=== PATIENT | female | born 2000 | race Caucasian/White ===

== ENCOUNTER 2023-04-28 14:00 | Outpatient (REF) | payer OTHER, SELFPAY ==
[2023-05-01 16:58] LABS: VITAMIN D (1,25 OH) D3 20 pg/mL; Vit D (1,25-Dihydroxy) Total 41 pg/mL (18-72); Vitamin D (1,25 OH) D2 21 pg/mL
== END 2023-04-28 14:01 | disposition home or self-care (01) ==
LOC: HO.CHCLDS 14:00
PROVIDERS: Visit Provider Pediatrics
DX: E55.9 Vitamin D deficiency, unspecified (principal)
CPT/HCPCS: 36415; 82652

== ENCOUNTER 2023-05-05 10:59 | Outpatient (REF) | payer OTHER, SELFPAY ==
[2023-05-05 16:39] LABS: CT PCR NOT DETECTED (Not Detect.); NG PCR NOT DETECTED (Not Detect.)
[2023-05-07 11:14] LABS: RPR Rapid Plasma Reagin NON-REACTIVE (NON-REACTIVE)
[2023-05-07 22:53] LABS: TS Negative Control Passed; TS Panel A 0; TS Panel B 0; TS Positive Control Passed; TSpotTB Negative (Negative)
== END 2023-05-05 11:00 | disposition home or self-care (01) ==
LOC: HO.CHCLDS 10:59
PROVIDERS: Visit Provider Internal Medicine
DX: Z00.00 Encounter for general adult medical examination without abnormal findings (principal)
CPT/HCPCS: 0353U; 86481; 86592

== ENCOUNTER 2024-10-25 11:54 | Outpatient (REF) | payer OTHER, SELFPAY ==
[2024-10-25 14:49] LABS: MANUAL DIFF FLAG NO
[2024-10-25 14:55] LABS: Hematocrit 44.0 % (37.0-47.0); Hemoglobin 14.2 g/dl (12.0-16.0); Imm Gran Abs Auto 0.03 X10*3/uL (0.00-0.03); Imm Gran Pct Auto 0.3 % (0.0-0.4); Lymphocytes Absolute Auto 2.3 X10*3/uL (1.2-4.9); Mean Corpuscular HGB Conc 32.3 g/dl (31.0-35.0); Mean Corpuscular Hemoglobin 28.1 pg (27.0-33.0); Mean Corpuscular Volume 87.0 fL (80.0-98.0); NRBC Abs Auto 0.000 X10*3/uL (0.0-0.012); NRBC Pct Auto 0.0 /100WBC (0.0-0.2); Platelet Count 288 X10*3/uL (160-400); Red Blood Count 5.06 X10*6/uL (4.20-5.50); White Blood Count 8.9 X10*3/uL (4.8-10.8)
[2024-10-25 15:41] LABS: Folate 6.1 ng/mL (> or = 4.0); Vitamin B12 745 pg/mL (200-900)
== END 2024-10-25 11:55 | disposition home or self-care (01) ==
LOC: HO.CHCLDS 11:54
PROVIDERS: Visit Provider Pediatrics
DX: E55.9 Vitamin D deficiency, unspecified (principal); E66.3 Overweight; N94.6 Dysmenorrhea, unspecified
CPT/HCPCS: 36415; 82306; 82607; 82746; 85025

== ENCOUNTER 2025-02-27 15:33 | Outpatient (REF) | payer OTHER, SELFPAY ==
[2025-02-27 18:03] LABS: MANUAL DIFF FLAG NO
[2025-02-27 18:25] LABS: Hematocrit 44.1 % (37.0-47.0); Hemoglobin 14.1 g/dl (12.0-16.0); Imm Gran Abs Auto 0.02 X10*3/uL (0.00-0.03); Imm Gran Pct Auto 0.3 % (0.0-0.4); Lymphocytes Absolute Auto 2.4 X10*3/uL (1.2-4.9); Mean Corpuscular HGB Conc 32.0 g/dl (31.0-35.0); Mean Corpuscular Hemoglobin 27.1 pg (27.0-33.0); Mean Corpuscular Volume 84.8 fL (80.0-98.0); NRBC Abs Auto 0.000 X10*3/uL (0.0-0.012); NRBC Pct Auto 0.0 /100WBC (0.0-0.2); Platelet Count 272 X10*3/uL (160-400); Red Blood Count 5.20 X10*6/uL (4.20-5.50); White Blood Count 6.2 X10*3/uL (4.8-10.8)
[2025-02-27 18:36] LABS: Anion Gap 11 (12-20); Blood Urea Nitrogen 11 mg/dL (9-16); Calcium 9.1 mg/dL (8.4-10.2); Carbon Dioxide 24 mmol/L (22-29); Chloride 108 mmol/L (96-108); Cholesterol 160 mg/dL (<200); Estimated Glomerular Filt Rate > 60; HDL Cholesterol 65 mg/dL (>40); Potassium 4.0 mmol/L (3.3-5.1); Sodium 139 mmol/L (135-145); Triglycerides 86 mg/dL (<150)
[2025-02-28 07:14] LABS: HBS Num1 1.51 mIU/mL (0-7.99); HBc Num1 0.08 S/CO (0.00-0.79); HBsAGNum1 0.52 S/CO (0.00-0.99); Hepatitis B Surface Antigen Negative (Negative); ~Hepatitis B Surface Antibody NONREACTIVE (Nonreactive)
[2025-03-02 08:23] LABS: TS Negative Control Passed; TS Panel A 0; TS Panel B 0; TS Positive Control Passed; TSpotTB Negative (Negative)
== END 2025-02-27 15:34 | disposition home or self-care (01) ==
LOC: HO.CHCLDS 15:33
DX: Z00.00 Encounter for general adult medical examination without abnormal findings (principal); Z11.1 Encounter for screening for respiratory tuberculosis; Z13.6 Encounter for screening for cardiovascular disorders
CPT/HCPCS: 36415; 80048; 80061; 85025; 86481; 86704; 86706; 87340